=== PATIENT | male | born 1945 | race Caucasian/White ===

== ENCOUNTER → 2019-08-28 | Outpatient (CLI) | payer MEDICARE ==
--- NOTE | 2019-08-28 08:39 | MR ---
EXAMINATION TYPE: MR shoulder RT wo con DATE OF EXAM: 08/28/2019 COMPARISON: Plain film dated 08/19/2019 HISTORY: R shoulder pain TECHNIQUE: Multiplanar, multisequence imaging of the right shoulder is performed without contrast. FINDINGS: There is motion on the exam. Rotator Cuff: Abnormal thickening and increased signal is noted within the rotator cuff. There may be at least a partial full-thickness tear of the supraspinatus tendon, abnormal intrasubstance signal i s present central to the insertion. There is abnormal signal at the insertion of the infraspinatus te ndon which may represent partial tear. Acromioclavicular Joint: Hypertrophic changes are present causing some mass effect on the musculotend inous junction of supraspinatus, there is some fluid signal subacromial subdeltoid bursa, there is a distal acromial spur Glenohumeral Joint: Intact Labrum: There is abnormal increased signal within the superior labrum, especially towards the posteri or aspect, difficult to exclude tear, SLAP lesion. Biceps Tendon: The long head of biceps is in normal location within bicipital groove. Fluid signal is present along the long head of biceps tendon. Bone marrow signal: Pseudocysts are present in the humeral head. Other: There is fluid present along the subscapularis musculotendinous junction. IMPRESSION: Findings are suspicious for at least a partial tear of the rotator cuff, findings of the labrum as de scribed. There may be biceps tendinosis. 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
== END | disposition home or self-care (01) ==
LOC: RADMRIMAIN 07:32
PROVIDERS: ATTEND Orthopaedic Surgery
DX: M12.811 Other specific arthropathies, not elsewhere classified, right shoulder (principal)

== ENCOUNTER 2019-09-11 13:22 | Day surgery (SDC) | payer MEDICARE ==
[2019-09-10 09:27] VITALS: BMI 27.2
--- NOTE | 2019-09-10 15:34 | HP ---
HISTORY AND PHYSICAL Surgery 09/11/2019. Alex Cartwright is a 74-year-old patient seen with symptomatic right ring finger and right middle finger trigger fingers. We discussed options for treatment. He elected to proceed with release of the A1 pulleys of the right ring finger and right middle finger. Consent regarding procedure was obtained. PAST MEDICAL HISTORY: Noncontributory. PAST SURGICAL HISTORY: Noncontributory. DAILY MEDICATIONS: Vitamins. ALLERGIES: None. SOCIAL HISTORY: He denies tobacco use. PHYSICAL EXAMINATION: Evaluation of the right hand: He has tenderness along the A1 gisel areas of the right middle finger and right ring finger. There is clicking and catching with range of motion. Carpal Tinel's is negative. There is good perfusion sensation distally. He is nontender along the remaining A1 gisel areas. RADIOGRAPHS: Radiographs of the right hand reveal some osteoarthritic changes. IMPRESSION: Right ring finger and right middle finger trigger fingers. PLAN: Release A1 gisel, right ring finger and right middle finger. Surgery . MMODL / IJN: [id number] /
[~2019-09-11 13:22] MED LIST: DEXAMETHASONE SOD PHOSPHATE 10 MG/ML 1 ML VIAL IV ONE; HYDROmorphone 0.5 MG/0.5 ML SYRINGE IVP PRN; LACTATED RINGERS 1,000 ML IV SCH; LIDOCAINE 1% 20 ML VIAL (10MG/ML) FOR IV START INTRADERMA PRN; ONDANSETRON 4 MG/2 ML VIAL IVP ONE
[2019-09-11 13:52] VITALS: RESP 16; TEMP 97.9
[2019-09-11] MEDS ORDERED: GLYCOPYRROLATE 0.2 MG/ML 2 ML VIAL ONE (14:18)
[2019-09-11] MEDS ORDERED: LIDOCAINE 1% INJ 10MG/ML (20 ML MDV) ONE (14:18)
[2019-09-11] MEDS ORDERED: PROPOFOL 10 MG/ML 20 ML VIAL IV ONE (14:18)
[2019-09-11] MEDS ORDERED: fentaNYL (PF) 50 MCG/ML 2 ML AMP ONE (14:18)
[2019-09-11] MEDS ORDERED: KETAMINE 10 MG/ML 20 ML VIAL ONE (14:18)
[2019-09-11] MEDS ORDERED: MIDAZOLAM 2 MG/2 ML VIAL ONE (14:18)
[2019-09-11] MEDS ORDERED: BUPIVACAINE (PF) 0.25% 30 ML VIAL SQ ONE (14:21)
--- NOTE | 2019-09-11 14:59 | P.OP ---
Date of Procedure: 09/11/19 Preoperative Diagnosis: 1. Right middle finger trigger finger 2. Right ring finger trigger finger Postoperative Diagnosis: Same Procedure(s) Performed: 1. Release A1 gisel right middle finger 2. Release A1 gisel right ring finger Anesthesia: MAC, local Surgeon: Toni Power Estimated Blood Loss (ml): 1 Pathology: none sent Condition: stable Disposition: PACU Indications for Procedure: 74-year-old patient seen with symptomatic right middle finger and right ring finger trigger fingers. After having treatment options discussed, he elected to proceed with surgical release A1 gisel right middle finger and right ring finger. Operative Findings: See description of procedure Description of Procedure: The patient was taken to the operative suite. Per extremity was prepped and draped in the normal sterile orthopedic fashion. I infiltrated the proposed incision sites with 5 mL quarter percent plain Marcaine at each incision area. Once sufficient local analgesia was noted the extremity was elevated and the to urniquet was insufflated to 250. I started with an incision at the area 1 gisel right middle finger. I dissected down to the A1 gisel. The A1 gisel was identified. I now made an incision through the A1 gisel and completed the release proximally and distally with blunt tenotomies. There was complete release of the A1 gisel with good excursion of the tendon and no impingement. I now made an incision in the area A1 gisel right ring finger. I dissected down to the A1 gisel the A1 gisel was identified. A small incision was made centrally. I now completed the release proximally and distally with blunt tenotomies. There was complete release of the A1 gisel with good excursion of the tendon and no impingement. Both wounds were irrigated. There appeared be good hemostasis. Both incisions were proximal nylon suture. We applied sterile dressings. The tourniquet was released and immediate capillary refill noted of all digits. The patient was now awakened, transferred to recovery stable condition.
[2019-09-11 15:16] VITALS: BP 133/79; PULSE 75
== END 2019-09-11 15:49 | disposition home or self-care (01) ==
LOC: OR 13:22
PROVIDERS: ATTEND Orthopaedic Surgery
DX: M65.331 Trigger finger, right middle finger (principal); M65.341 Trigger finger, right ring finger
CPT/HCPCS: 26055 ×2; J2250; J1100; J0690; J2405; J2001; J3010; J2704

== ENCOUNTER → 2019-10-01 | Day surgery (SDC) | payer MEDICARE ==
--- NOTE | 2019-09-30 19:22 | HP ---
HISTORY AND PHYSICAL REASON FOR ADMISSION: Surgery is 10/01/2019 HISTORY OF PRESENT ILLNESS: Alex Cartwright is a 74-year-old patient seen with progressive right shoulder pain. After having treatment options discussed with him, he elected to proceed with arthroscopy. Consent regarding the procedure was obtained. Clearance was provided by Dr. Maximiliano Driver. PAST MEDICAL HISTORY: Noncontributory. PAST SURGICAL HISTORY: Noncontributory. MEDICATIONS: Multivitamins. ALLERGIES: None. SOCIAL HISTORY: Denies tobacco use. PHYSICAL EXAMINATION: Evaluation of the right shoulder: Flexion 160, abduction 120, external rotation is 40 with pain, weakness, tenderness along the anterior lateral acromion and rotator cuff insertion site. Impingement positive at 90 degrees. Drop-arm sign is positive. Distal neurovascular exam is intact. RADIOGRAPHS: Radiographs of the right shoulder revealed a type 2 anterior acromion, evidence for acromioclavicular joint osteoarthritis and a calcific body consistent with a calcific tendinitis. Right shoulder MRI revealed rotator cuff tear, labral tear and acromioclavicular joint osteoarthritis. IMPRESSION: 1. Right shoulder impingement with rotator cuff tear. 2. Right shoulder acromioclavicular joint osteoarthritis. 3. Right shoulder labral tear. 4. 5. Right shoulder calcific tendinitis. PLAN: Right shoulder arthroscopy with subacromial decompression, arthroscopic rotator cuff repair, arthroscopic Laura procedure and debridement. Surgery is scheduled for 10/01/2019. MMODL / IJN: [id number] /
[~2019-10-01] MED LIST changes: +LACTATED RINGERS 1,000 ML IV ONE; +LIDOCAINE 1% (10MG/ML) FOR IV START INTRADERMA PRN; -LIDOCAINE 1% 20 ML VIAL (10MG/ML) FOR IV START INTRADERMA PRN; +LIDOCAINE 1% INJ 10MG/ML (20 ML MDV) ONE; +MIDAZOLAM 2 MG/2 ML VIAL IV PRN; +MIDAZOLAM 2 MG/2 ML VIAL ONE; +PROPOFOL 10 MG/ML 20 ML VIAL IV ONE; +ROPIVACAINE 0.2%-NS ON-Q PUMP 1,090 MG, EMPTY PAIN BALL 1 EACH MISCELLANE PRN; +ROPIVACAINE 5 MG/ML 30 ML VIAL ONE; +SUCCINYLCHOLINE CHLORIDE 100 MG/5 ML SYR IV ONE; +ePHEDrine SULFATE/0.9% NACL/PF 50 MG/5 ML SYRINGE IV ONE; +fentaNYL (PF) 50 MCG/ML 2 ML AMP IVP PRN; +fentaNYL (PF) 50 MCG/ML 2 ML AMP ONE
[2019-10-01 08:42] VITALS: RESP 16
--- NOTE | 2019-10-01 10:02 | P.ANPRN ---
Procedure Note - Anesthesia - Nerve Block Performed Right Interscalene Infusion Time Out Performed: Yes Date of Procedure: 10/01/19 Procedure Start Time: :06 Procedure Stop Time: :15 Location of Patient: PreOp Indication: Acute Post-Operative Pain, Requested by Surgeon Sedation Type: Sedate with meaningful contact maintained Preparation: Sterile Prep, Sterile Dressing Position: Sitting Catheter Depth at Skin (cm): 4 Catheter: Indwelling Needle Types: On-Q Needle Gauge: 18 Ultrasound used to visualize needle placement: Yes Ultrasound used to observe medication spread: Yes Injectate: 0.5% Ropivacaine (see comment for volume) (20 ml) Blood Aspirated: No Pain Paresthesia on Injection Noted: No Resistance on Injection: Normal Image Stored and Saved: Yes Events: Uneventful and Well Tolerated
--- NOTE | 2019-10-01 11:29 | P.OP ---
Date of Procedure: 10/01/19 Preoperative Diagnosis: Right shoulder impingement Postoperative Diagnosis: 1. Right shoulder rotator cuff tear 2. Right shoulder impingement 3. Right shoulder acromioclavicular joint osteoarthritis 4. Right shoulder partial long head biceps tendon tear 5. Right shoulder superficial labral tear Procedure(s) Performed: 1. Right shoulder arthroscopic rotator cuff repair 2. Right shoulder arthroscopic subacromial decompression 3. Right shoulder arthroscopic Laura procedure 4. Right shoulder arthroscopic biceps tenotomy 5. Right shoulder arthroscopic debridement labral tear Implants: 1-Arthrex 4.75 swivel lock anchor Anesthesia: GETA, regional (Interscalene block/catheter) Surgeon: Toni Power Bulk Station Operator #1: Ming Sykes Estimated Blood Loss (ml): 11 Pathology: none sent Condition: stable Disposition: PACU Indications for Procedure: 74-year-old patient seen with progressive right shoulder pain. After having treatment options discussed, he elected to proceed with arthroscopy. Operative Findings: See description of procedure Description of Procedure: Patient underwent an interscalene block by department of anesthesia. The patient was then taken to the operative suite. The patient underwent a general anesthetic by the department of anesthesia. The patient was placed into a lateral position and secured. There was appropriate padding of the bony prominence. Right shoulder was then prepped and draped in normal sterile orthopedic fashion. We placed the extremity in 10 pounds of longitudinal traction. A posterior incision was now made for a posterior working portal site. The trocar and cannula were inserted into the glenohumeral joint. Arthroscopy was initiated. Spinal needle was now inserted anteriorly, to ascertain the anterior working portal site. An incision was now made in that area, a trocar was inserted followed by a probe. There was superficial tearing of the anterior and superior labrum. There were grade 2/3 chondromalacia changes involving just the central portion of the humeral head with no osteochondral tears. There was some hyperemia and partial tearing long head biceps tendon. I could visualize rotator cuff tear in the distal supraspinatus area from the glenohumeral joint. The performed an arthroscopic biceps tenotomy. I debrided the superficial labral tear getting down to stable labral tissue. The residual labrum was stable. At this point instruments removed from the glenohumeral joint. Utilizing the posterior working portal site, the trocar and cannula were inserted into the subacromial space. Arthroscopy initiated. I made an incision 2 fingerbreadths lateral to the acromion. I introduced my trocar followed by my ArthroCare ablator. I now began ablating thick subacromial bursal tissue, which exposed the undersurface of the anterior acromion. There was diminished subacromial space. There was a very prominent anterior acromion. A motorized bur was introduced and a subacromial decompression was performed. I also excised some osteophytes off the inferior aspect of the distal clavicle. The AC joint was visualized and noted to be fairly arthritic. The motorized bur was introduced in the anterior portal site and a Laura procedure was performed without difficulty, decompressing the AC joint nicely. I turned my attention to the rotator cuff. There was a 1.5 cm rotator cuff tear. I debrided the margins getting down to stable tendon tissue. I abraded the footprint with a motorized bur. I passed 2 everted mattress sutures through good bites of rotator cuff tendon. I placed a hole in the footprint area for insertion of an anchor. I passed all 4 limbs through the eyelet of a 4.75 Arthrex swivel lock anchor. Shine WISE now inserted the eyelet into the pre-punch hole. I held the anchor in position while he tensioning all the sutures and deployed the anchor. We good fixation of the anchor. All residual suture limbs were now clipped. We had good compression of the tendon along the entire footprint. I injected 1 mL Renyte intra-articular. Instruments now removed from the portal sites. All portal sites were approximated with nylon suture. Sterile dressings were applied followed by a shoulder immobilizer. Ming WISE assisted in this complex case. The patient was awakened, transferred to a bed, and taken to recovery in stable condition.
[2019-10-01 11:40] VITALS: TEMP 97.2
[2019-10-01 13:08] VITALS: BP 157/89; PULSE 54
== END | disposition home or self-care (01) ==
LOC: OR 07:47
PROVIDERS: ATTEND Orthopaedic Surgery
DX: M75.101 Unspecified rotator cuff tear or rupture of right shoulder, not specified as traumatic (principal); M75.41 Impingement syndrome of right shoulder; M19.011 Primary osteoarthritis, right shoulder; S46.111A Strain of muscle, fascia and tendon of long head of biceps, right arm, initial encounter; S43.431A Superior glenoid labrum lesion of right shoulder, initial encounter; X58.XXXA Exposure to other specified factors, initial encounter; M75.31 Calcific tendinitis of right shoulder; M94.211 Chondromalacia, right shoulder; M25.711 Osteophyte, right shoulder; Z87.891 Personal history of nicotine dependence; Z98.890 Other specified postprocedural states; Z97.2 Presence of dental prosthetic device (complete) (partial); Z79.1 Long term (current) use of non-steroidal anti-inflammatories (NSAID); Z88.0 Allergy status to penicillin
CPT/HCPCS: 64415; 76942; 29826; 29827; 29824; C1713 ×2; Q4212; J2250; J1100; J0690; J2405; J2001; J3010; J2795 ×2; J0330; J2704